=== PATIENT | male | born 1995 | race African-American/Black ===

== ENCOUNTER 2016-11-18 10:39 | Emergency (ER) | payer MEDICAID ==
[~2016-11-18] VITALS: Ht 182.9 cm; Wt 63.5 kg
--- NOTE | 2016-11-18 11:25 | Emergency Room Report ---
History of Present Illness General Chief Complaint: Upper Respiratory Illness Source: Patient Present Illness HPI Upper respiratory infection worsened for one week. States has had some cough for 2 months. Coughing yellow material now. No wheezes. Slight sore throat and also nasal congestion. The cough keeps him awake at night. He's felt feverish. No nausea vomiting diarrhea dysuria rashes headache. The patient does not smoke. Allergies: Coded Allergies: No Known Allergies (Unverified , 11/18/16) Patient History Social History: Denies: smoking Social History Narrative at home Reviewed Nursing Documentation: PMH: Agreed, PSxH: Agreed Nursing Documentation-PM Past Medical History: No Stated History Review of Systems All Other Systems: negative except mentioned in HPI Physical Exam Vital Signs Date Time Temp Pulse Resp B/P Pulse Ox O2 Delivery O2 Flow Rate FiO2 11/18/16 10:55 98.1 76 18 111/76 100 Room Air Sp02 EP Interpretation: reviewed, normal General Appearance: well appearing, no apparent distress Head: normocephalic, atraumatic ENT: TMs + canals normal, moist mucus membranes, pharyngeal erythema Neck: full range of motion, supple Respiratory: chest non-tender, lungs clear, no respiratory distress, speaking full sentences Cardiovascular #1: regular rate, rhythm Gastrointestinal: non tender, soft Musculoskeletal: normal inspection, no calf tenderness Neurologic: alert, normal gait, grossly normal Psychiatric: mood/affect normal Skin: no rash Medical Decision Making Diagnostic Impression: Primary Impression: Upper respiratory infection Qualified Codes: J06.9 - Acute upper respiratory infection, unspecified Additional Impression: Sinusitis Qualified Codes: J01.00 - Acute maxillary sinusitis, unspecified ER Course The patient presents with several months of upper respiratory symptomatology. This worsened over the last week. Producing colored phlegm. Differential includes viral syndrome, pharyngitis, sinusitis, pneumonia, bronchitis amongst others. Clinically he appears to have sinusitis. In a boxer indicated. The patient's son appear toxic and is in no respiratory distress. The patient is stable for outpatient observation and treatment. Last Vital Signs Date Time Temp Pulse Resp B/P Pulse Ox O2 Delivery O2 Flow Rate FiO2 11/18/16 11:44 98.1 18 111/76 100 Room Air 11/18/16 11:41 76 Status: unchanged Scripts Chlorpheniramine Maleate (CHLOR-TRIMETON) 4 Mg Tablet 4 MG PO Q6HR Y for congestion, #14 TAB Prov: Servando Worley M.D. 11/18/16 Codeine/Promethazine Hcl* (PROMETHAZINE-CODEINE SYRUP*) 118 Ml Syrup 5 ML ORAL Q6H Y for For Cough, #30 ML 0 Refills Prov: Servando Worley M.D. 11/18/16 Azithromycin* (ZITHROMAX*) 250 Mg Tablet 250 MG ORAL DAILY, #6 TAB 0 Refills Take two tables once daily for 1 day, then one tablet once daily for 4 days. Prov: Servando Worley M.D. 11/18/16 Servando Worley M.D. Nov 18, 2016 11:25
[2016-11-18] MEDS ORDERED: ZITHROMAX250 MG ORAL (11:28)
[2016-11-18] MEDS ORDERED: CHLOR-TRIMETON4 MG PO (11:28)
[2016-11-18] MEDS ORDERED: PROMETHAZINE-C118 M1 ORAL (11:28)
[2016-11-18 11:43] VITALS: BP 111/76
[2016-11-18 11:44] VITALS: BP 111/76
== END 2016-11-18 11:46 | disposition home or self-care (01) ==
LOC: EMR 11:28
DX: J06.9 Acute upper respiratory infection, unspecified (principal); J01.00 Acute maxillary sinusitis, unspecified
CPT/HCPCS: 99284